=== PATIENT | female | born 1980 | race Caucasian/White ===

== ENCOUNTER 2017-04-02 11:04 | Emergency (ER) | payer OTHER ==
[~2017-04-02] VITALS: Ht 175.3 cm; Wt 69.4 kg
[2017-04-02 11:05] VITALS: BP 106/69
[2017-04-02] MEDS ORDERED: OXYM15MI4 NS (12:07)
[2017-04-02] MEDS ORDERED: IBUP400T18 PO (12:07)
--- NOTE | 2017-04-02 12:07 | PHYS DOC ---
Past History Past Medical History: No Pertinent History Past Surgical History: No Surgical History Alcohol Use: None Drug Use: None Adult General Chief Complaint Chief Complaint: COLD EXPOSURE HPI HPI 36-year-old female presenting with nasal congestion and sore throat rhinorrhea and sinus pressure over the past few days. It is of throbbing sharp intermittent pain that is nonradiating without alleviating factors. She has not taken anything for it. She has a history of sickle cell disease. Review of systems is negative for chest pain shortness of breath abdominal pain nausea vomiting. All other review of systems is negative unless otherwise noted in history of present illness. ED course: 36-year-old female presenting to the emergency department today with signs and symptoms suggestive of acute viral sinusitis. I recommended ibuprofen oximeter house alone and nasal rinses to follow-up with her doctor in the next few days if her symptoms are not improving. The patient was then discharged home in stable condition to follow up with their primary care physician over the next 2-3 days. They were to return if their symptoms worsened or if they were concerned for any reason. [id number] discharge instructions and return precautions were given. Patient's questions were answered to their satisfaction. Patient is comfortable plan. Review of Systems Review of Systems SEE ABOVE. Allergies Allergies Allergies Coded Allergies Type Severity Reaction Last Updated Verified No Known Drug Allergies 04/02/17 No Physical Exam Physical Exam SEE ABOVE Constitutional: Well developed, well nourished, no acute distress, non-toxic appearance. [] HENT: Normocephalic, atraumatic, bilateral external ears normal, oropharynx moist, no oral exudates, nose normal. Eyes: PERRLA, EOMI, conjunctiva normal, no discharge. [] Neck: Normal range of motion, no tenderness, supple, no stridor. [] Cardiovascular:Heart rate regular rhythm, no murmur [] Lungs & Thorax: Bilateral breath sounds clear to auscultation [] Abdomen: Bowel sounds normal, soft, no tenderness, no masses, no pulsatile masses. [] Skin: Warm, dry, no erythema, no rash. [] Back: No tenderness, no CVA tenderness. [] Extremities: No tenderness, no cyanosis, no clubbing, ROM intact, no edema. [] Neurologic: Alert and oriented X 3, normal motor function, normal sensory function, no focal deficits noted. [] Psychologic: Affect normal, judgement normal, mood normal. [] EKG EKG [] Radiology/Procedures Radiology/Procedures [] Course & Med Decision Making Course & Med Decision Making Pertinent Labs and Imaging studies reviewed. (See chart for details) [] Dragon Disclaimer Dragon Disclaimer This electronic medical record was generated, in whole or in part, using a voice recognition dictation system. Departure Departure: Impression: Primary Impression: Acute viral sinusitis Disposition: HOME, SELF-CARE Condition: STABLE Referrals: PCP,UNKNOWN (PCP) Patient Instructions: Sinusitis, [id number] Additional Instructions: Thank you for allowing us to participate in your care today. Followup with your primary care physician in 3 days if your symptoms do not improve. Call your Primary Doctor tomorrow and inform them of your visit today. If you do not have a primary care provider you can ask for a list of our primary care providers. Return to the emergency department you have any new or concerning findings. This should be evaluated by the primary care physician and any necessary consulting services for continued management within a few days after discharge. Return to emergency room if you have any new or concerning symptoms including but not limited to fever, chills, nausea, vomiting, intractable pain, any new rashes, chest pain, shortness of air, uncontrolled bleeding, difficulty breathing, and/or vision loss. Scripts Ibuprofen (IBUPROFEN) 400 Mg Tablet 1 TAB PO PRN Q8HRS Y for PAIN, #20 TAB Prov: ANA STEVE MD 04/02/17 Oxymetazoline Hcl (AFRIN) 15 Ml Mist 15 ML NS PRN Q6-8HRS Y for SEE COMMENTS, #1 SPRAY 0 Refills Prov: ANA STEVE MD 04/02/17 ANA STEVE MD Apr 02, 2017 12:07
== END 2017-04-02 11:45 | disposition home or self-care (01) ==
LOC: ER 11:04
DX: J01.80 Other acute sinusitis (principal)
CPT/HCPCS: 99282

== ENCOUNTER 2017-06-09 01:21 | Emergency (ER) | payer OTHER ==
[~2017-06-09] VITALS: Ht 175.3 cm; Wt 68.0 kg
[~2017-06-09 01:21] MED LIST: IBUP400T18 PO; OXYM15MI4 NS
[2017-06-09 01:25] VITALS: BP 148/97
[2017-06-09] MEDS ORDERED: IV NORMAL SALINE 1,000ML 1,000 ML IV SCH ×3 (01:29→03:12)
[2017-06-09 01:47] LABS: BASO # 0.1 x10^3/uL (0.0-0.2); BASO % 1 % (0-3); EOS # 0.2 x10^3/uL (0.0-0.7); EOS % 1 % (0-3); HEMATOCRIT 21.2 % (36.0-47.0); HEMOGLOBIN 7.4 g/dL (12.0-15.5); LYMPH % 36 % (24-48); MEAN CORPUSCULAR HEMOGLOBIN 37 pg (25-35); MEAN CORPUSCULAR HGB CONC 35 g/dL (31-37); MEAN CORPUSCULAR VOLUME 106 fL (79-100); MONO # 2.4 x10^3/uL (0.0-1.1); MONO % 12 % (0-9); NEUT # 9.9 x10^3uL (1.8-7.7); NEUT % 50 % (31-73); PLATELET COUNT 365 x10^3/uL (140-400); WHITE BLOOD COUNT 19.6 x10^3/uL (4.0-11.0)
[2017-06-09 02:06] LABS: ALBUMIN 3.6 g/dL (3.4-5.0); ALBUMIN/GLOBULIN RATIO 0.7 (1.0-1.7); C REACTIVE PROTEIN 14.7 mg/L (0-3.3); CALCIUM 8.3 mg/dL (8.5-10.1); GFR 80.7; TOTAL BILIRUBIN 3.4 mg/dL (0.2-1.0)
[2017-06-09 02:11] LABS: TOTAL PROTEIN 8.8 g/dL (6.4-8.2)
[2017-06-09 02:12] LABS: CREATININE 0.8 mg/dL (0.6-1.0)
[2017-06-09 02:13] LABS: POTASSIUM 3.9 mmol/L (3.5-5.1)
[2017-06-09 02:31] LABS: % BANDS 5 % (0-9); % LYMPHS 48 % (24-48); % MONOS 6 % (0-10); % SEGS 41 % (35-66); NUCLEATED RBC 7
[2017-06-09 02:32] LABS: PLT ESTIMATE ADEQUATE (ADEQUATE); POLYCHROMASIA SLIGHT
[2017-06-09 02:33] LABS: ANISOCYTOSIS MOD; POIKILOCYTOSIS SLIGHT; SICKLE CELLS FEW
[2017-06-09 02:53] LABS: BARBITURATES NEG (NEG); BENZODIAZEPINES NEG (NEG); CANNABINOIDS NEG (NEG); COCAINE NEG (NEG); METHADONE NEG (NEG); OPIATES NEG (NEG); PHENCYCLIDINE NEG (NEG)
[2017-06-09 02:54] LABS: AMPHETAMINE/METHAMPHETAMINE NEG (NEG)
[2017-06-09 02:58] LABS: BACTERIA,URINE 0 /HPF (0-FEW); BILIRUBIN,URINE NEG (NEG); CLARITY,URINE CLEAR; COLOR,URINE YELLOW; GLUCOSE,URINE NEG (NEG); NITRITE,URINE NEG (NEG); RBC,URINE 0 /HPF (0-2); SQUAMOUS EPITHELIAL CELL,UR MOD /LPF; UROBILINOGEN,URINE 0.2 mg/dL (0.2 mg/dL); WBC,URINE OCC /HPF (0-4)
[2017-06-09 03:04] LABS: INFLUENZA A PATIENT NEGATIVE (NEGATIVE); INFLUENZA B PATIENT NEGATIVE (NEGATIVE)
[2017-06-09] MEDS ORDERED: AZITHROMYCIN 500 MG in IV NORMAL SALINE 250ML 250 ML IV ONE (03:15)
--- NOTE | 2017-06-09 03:32 | PHYS DOC ---
General Chief Complaint: ANEMIA Stated Complaint: SICKLE CELL CRISIS Time Seen by MD: 01:25 Source: patient, family Exam Limitations: no limitations Problems: History of Present Illness Initial Comments Patient is a 37-year-old female brought to the ED by significant other complaining of "sickle cell crisis." Patient typically follows at [place], she arrives to the emergency department in severe distress moaning out loud with each breath complaining of severe whole body pain. Most of the history is obtained from her significant other as patient is in too great discomfort to provide much information. Once her pain is controlled with fentanyl IV she is so sedated that again she is a very poor historian. Patient is living here for a year only, they're not established with a local sickle cell anemia clinic, patient does take folic acid daily and that did try her home pain meds prior to coming without any relief. Spouse states that the patient has had a dry cough for the past few days no trouble breathing no measured fevers their child was treated for influenza last week. Patient awoke this morning feeling well and worked out this morning per her routine, she's had worsening whole body pain throughout the day. Pain typical of prior sickle cell crises, at 2300 yesterday it became so severe she was brought to the ED for further evaluation. Pain is described as "whole body" including chest abdomen arms and legs and head. ED vitals: 98.2, 107, 22, 148/97, 89% on room air increased to 97% on 3 L O2 nasal cannula. Timing/Duration: other Severity: severe Modifying Factors: improves with other Associated Symptoms: other Allergies: Coded Allergies: No Known Drug Allergies (Unverified , 04/02/17) Past Medical History Medical History: other (sickle cell anemia) Surgical History: no surgical history Social History Smoker: non-smoker Alcohol: occasionally Drugs: none Review of Systems Constitutional: denies chills, denies diaphoresis, denies fever, malaise, weakness EENTM: denies ear pain, denies nose pain, nose congestion, denies throat pain, denies throat swelling, denies mouth pain, denies mouth swelling Respiratory: cough, denies shortness of breath, denies wheezing Cardiovascular: see HPI, denies palpitations, denies syncope Gastrointestinal: see HPI, denies diarrhea, denies nausea, denies vomiting Musculoskeletal: see HPI, denies joint swelling, denies muscle stiffness, denies neck pain Psychiatric/Neurological: see HPI, denies numbness, denies paresthesia, denies weakness Hematologic/Lymphatic: see HPI Physical Exam General Appearance: WD/WN, severe distress Eyes: bilateral eye PERRL, bilateral eye EOMI, bilateral eye scleral icterus Ear, Nose, Throat: hearing grossly normal, normal ENT inspection, normal pharynx Neck: non-tender, supple Respiratory: chest non-tender, respiratory distress, decreased breath sounds, crackles (right lower lobe), wheezing Cardiovascular: normal peripheral pulses, tachycardia Gastrointestinal: normal bowel sounds, non tender, soft Back: no CVA tenderness, no vertebral tenderness Extremities: normal range of motion, non-tender, normal inspection, no pedal edema, no calf tenderness, pelvis stable Neurologic/Psychiatric: director specialty II-XII nml as tested, no motor/sensory deficits, alert, normal mood/affect, oriented x 3 Skin: normal color, warm/dry Orders, Labs, Meds EKG: Normal sinus rhythm 85 bpm, T inversion noted in V3, V4, III, no ST segment elevation. Interpreted by me. AP chest: Questionable right middle lobe infiltrate and borderline cardiomegaly , interpreted by me. Pertinent labs: White blood cells 19.6, hemoglobin 7.4, RBCs 2, MCV 106, bands 5 , total bilirubin 3.4, AST 65, LDH 769, creatine kinase 628, troponin 0.032, C- reactive protein 14.7, urinalysis unremarkable urine drug screen negative influenza A and B both negative. Lactic acid 1.7 0324: I discussed the patient with electronics hardware design engineer hospitalist Dr. Hanson. Our facility has no ICU bed availability. In addition after thorough discussion of the patient's condition electronics hardware design engineer hospitalist feels that the patient should be admitted to a facility with hematology/digital media specialist availability. 0335: I discussed the patient with electronics hardware design engineer hospitalist at [facility] Dr. Hoffmann. After thorough discussion of the patient she accepts ICU admission via EMS transfer for further evaluation and treatment. Patient received 21 L normal saline IV boluses now has normal saline running at 200 MLS per hour. Intravenous fentanyl has provided pain control, patient also received DuoNeb, as well as Rocephin 1 g and Zithromax 500 mg intravenously. Impressions: Respiratory distress Sickle cell crisis Right middle lobe pneumonia Elevated CK possible early rhabdo LDH elevation Departure Time of Disposition: 03:50 Disposition: 02 XFER SHT-TRM HOSP Condition: STABLE Additional Instructions: EMS transfer to [facility] for ICU admission Dr. Hoffmann is accepting. JOAQUÍN BLACKWELL DO Jun 09, 2017 03:32
[2017-06-09] MEDS ORDERED: AZITHROMYCIN 500 MG VIAL. IV ONE (03:37)
[2017-06-09] MEDS ORDERED: cefTRIAXone IV Push 1 GM VIAL. IVP ONE ×2 (03:37→04:00)
[2017-06-09] MEDS ORDERED: IV NORMAL SALINE 250ML 250 ML ONE (03:38)
[2017-06-09] MEDS ORDERED: IPRATRPIUM/ALBUTEROL 0.5/2.5MG 3 ML NEBU. NEB ONE (04:00)
--- NOTE | 2017-06-09 07:09 | RAD ---
AP chest, 06/09/2017: History: Sickle cell disease, chest pain The heart is enlarged. The pulmonary vascularity is within normal limits. There is obscuration of the left hemidiaphragm suggesting mild left basilar atelectasis/infiltrate. The portable technique may be contributing to this appearance. No left lung infiltrate is seen. No pleural fluid is evident. IMPRESSION: 1. Cardiomegaly. 2. Probable mild left basilar atelectasis/infiltrate.
--- NOTE | 2017-06-12 19:22 | EKG ---
[address] [address] Test Date: 2017-06-09 Test Time: 02:50:19 Pat Name: NIMISHA ONOFRE Department: Room: Gender: F Dump Operator: KWAME : [id number] Requested By: JOAQUÍN BLACKWELL Order Number: [id number] Reading MD: Measurements Intervals [place] Rate: 85 P: 60 SD: 164 QRS: 30 QRSD: 88 T: -17 QT: 380 QTc: 458 Interpretive Statements SINUS RHYTHM QRS(T) CONTOUR ABNORMALITY CONSIDER ANTEROLATERAL MYOCARDIAL DAMAGE T ABNORMALITY IN ANTERIOR LEADS INFERIOR LEADS ABNORMAL ECG RI6.01 No previous ECG available for comparison
== END 2017-06-09 06:00 | disposition short-term general hospital (02) ==
LOC: ER 04:00
DX: D57.00 Hb-SS disease with crisis, unspecified (principal); R06.03 Acute respiratory distress; J18.1 Lobar pneumonia, unspecified organism; R74.0 Nonspecific elevation of levels of transaminase and lactic acid dehydrogenase [LDH]; R74.8 Abnormal levels of other serum enzymes
CPT/HCPCS: 36415; 71045; 80053; 80307; 81001; 82550; 83605; 83615; 83690; 84484; 85007; 85025; 86140; 87040; 87804; 93005; 94640; 96361; 96365; 96366; 96375; 96376; 99285; J0456; J0696; J3010; J7050; J7620; G0479; J7030